=== PATIENT | female | born 1955 | race Caucasian/White ===

== ENCOUNTER → 2017-02-26 | Day surgery (SDC) | payer BC ==
[~2017-02-26] MED LIST: Bupivacaine 0.25% 30 ML SDV ONE; Lactated Ringers 1,000 ML IV SCH; Lidocaine 1% 30 ML SDV ONE; Lidocaine 1%/Sod Bicarbonate in NS 8.4% 1 ML Syringe PRN; Sodium Chloride 0.9% 10 ML Syringe FLUSH PRN; ceFAZolin 1 GM Vial ONE; ePHEDrine 50 MG/ML SDV ONE
--- NOTE | 2017-03-01 13:59 | PCM.OPNOTE ---
- General Post-Op/Procedure Note Date of Surgery/Procedure: 02/26/17 Operative Procedure(s): right carpal tunnel release Pre Op Diagnosis: right median nerve compression neuropathy Post-Op Diagnosis: Same Anesthesia Technique: Local Primary Surgeon: Medardo Moe Resaw Machine Operator: Kirsten Roche in mLs: 5 Complications: None Condition: Good
--- NOTE | 2017-03-01 14:24 | OR ---
DATE OF OPERATION: 02/26/2017 SURGEON: Medardo Moe MD OPERATION PERFORMED: Right carpal tunnel release. PREOPERATIVE DIAGNOSIS: Right median nerve compression neuropathy. POSTOPERATIVE DIAGNOSIS: Right median nerve compression neuropathy. ANESTHESIA: Local only. HIGH SCHOOL ASSISTANT FOOTBALL COACH: Kirsten Roche PA-C. ESTIMATED BLOOD LOSS: Less than 5 mL. COMPLICATIONS: None. CONDITION: Stable. DESCRIPTION OF PROCEDURE: The patient was identified in the preop holding area. Proper site was marked and identified by the surgeon. After the patient was taken back, the right upper extremity was sterilely prepped and draped in the usual sterile fashion. OR-wide time-out was performed. The patient received 2 grams of IV Ancef. At this time, right upper extremity was exsanguinated with the use of an Esmarch and it was used as a tourniquet on the forearm. With 1% lidocaine without epinephrine and 0.25% Marcaine without epinephrine, the palmar cutaneous branch of the median nerve was anesthetized proximally and then incisional site using Rehman cardinal line and ulnar border of the fourth digit. Once this had set up, incision was made. Blunt dissection was taken down to the palmar cutaneous fascia. Palmar cutaneous fascia was incised with a [place] blade. Transverse carpal ligament was identified. A small rent was made in the transverse carpal ligament and a [place] elevator was placed under this. [place] blade was used for release all the way distally, stopping just short of the palmar arch. At this time, attention was turned proximally. Tenotomy scissors was used for release of the superficial forearm fascia as well as transverse carpal ligament proximally, keeping the tips ulnar to protect the palmar cutaneous branch of the median nerve. At this time, there was found to be adequate release both proximally and distally. The patient had adequate saline irrigated through the wound. 4-0 nylon simple sutures were used, and the patient had a sterile soft dressing applied. MMODAL /[id number]
== END | disposition home or self-care (01) ==
LOC: JD.SDS 06:16
PROVIDERS: ATTEND Orthopaedic Surgery
DX: G56.01 Carpal tunnel syndrome, right upper limb (principal); I10 Essential (primary) hypertension; J45.30 Mild persistent asthma, uncomplicated; Z91.09 Other allergy status, other than to drugs and biological substances; Z79.899 Other long term (current) drug therapy; Z98.890 Other specified postprocedural states; Z98.51 Tubal ligation status; F17.210 Nicotine dependence, cigarettes, uncomplicated
CPT/HCPCS: 64721; 87641; J0690; J3490; J7120

== ENCOUNTER 2017-03-22 06:25 | Day surgery (SDC) | payer BC ==
[~2017-03-22 06:25] MED LIST changes: -Bupivacaine 0.25% 30 ML SDV ONE; -Lidocaine 1% 30 ML SDV ONE; +Lidocaine 1%/Sod Bicarbonate in NS 8.4% 1 ML Syringe IV PRN; -Lidocaine 1%/Sod Bicarbonate in NS 8.4% 1 ML Syringe PRN; -ceFAZolin 1 GM Vial ONE; -ePHEDrine 50 MG/ML SDV ONE
[2017-03-22] MEDS ORDERED: Bupivacaine 0.25% 30 ML SDV ONE (07:00)
[2017-03-22] MEDS ORDERED: ceFAZolin 1 GM Vial ONE (07:00)
[2017-03-22] MEDS ORDERED: Lidocaine 1% 30 ML SDV ONE (07:00)
--- NOTE | 2017-03-22 14:28 | PCM.OPNOTE ---
- General Post-Op/Procedure Note Date of Surgery/Procedure: 03/22/17 Operative Procedure(s): left carpal tunnel release Pre Op Diagnosis: left median nerve compression neuropathy Post-Op Diagnosis: Same Anesthesia Technique: Local Primary Surgeon: Medardo Moe Management Specialist: Kirsten Roche in mLs: 5 Complications: None Condition: Good Free Text/Narrative:: Intake & Output 03/21/17 03/22/17 03/22/17 22:59 06:59 14:59 Intake Total 460 Balance 460
--- NOTE | 2017-03-22 14:52 | OR ---
DATE OF OPERATION: 03/22/2017 SURGEON: Medardo Moe MD OPERATION PERFORMED: Left hand carpal tunnel release. PREOPERATIVE DIAGNOSIS: Left median nerve compression neuropathy. POSTOPERATIVE DIAGNOSIS: Left median nerve compression neuropathy. ANESTHESIA: Local only. ANESTHESIA PROVIDER: None. CABLE COVERER: Kirsten Roche PA-C. ESTIMATED BLOOD LOSS: Less than 5 mL. COMPLICATIONS: None. CONDITION: Stable. DESCRIPTION OF PROCEDURE: The patient was identified in the preop holding area. Proper site was marked and identified by the surgeon. The patient was taken back to the operating theater where after adequate anesthesia, the patient's left upper extremity was then sterilely prepped and draped in the usual sterile fashion. OR time-out was performed. The patient received 2 g of IV Ancef. At this time, the left upper extremity was marked after the incision site. A 1% lidocaine without epinephrine and 0.25% Marcaine without epinephrine were then used to anesthetize incisional site as well as the palmar cutaneous branch of the median nerve. Esmarch was then used on the forearm as a tourniquet. Incision was then made. Blunt dissection was taken down of the palmar cutaneous fascia. Palmar cutaneous fascia was then incised and taken down transverse carpal ligament. A small rent was made in the transverse carpal ligament. A [place] elevator was then placed underneath the transverse carpal ligament and it was released all the way distally with the use of a [place] blade. At this time, it was found to be adequate release distally. At this time, attention was turned proximally using a tenotomy scissors with keeping the tips ulnar to protect the palmar cutaneous branch of the median nerve. The forearm fascia as well as transverse carpal ligament was then released proximally. At this time, it was found to be adequate release both proximally and distally. Adequate saline was irrigated through the wound. It was closed with nylon sutures and a sterile soft dressing was applied. The patient tolerated the procedure well and was sent to PACU in stable condition. MMODAL /[id number]
== END 2017-03-22 08:25 | disposition home or self-care (01) ==
LOC: JD.SDS 06:25
PROVIDERS: ATTEND Orthopaedic Surgery
DX: G56.02 Carpal tunnel syndrome, left upper limb (principal); F17.200 Nicotine dependence, unspecified, uncomplicated; J45.30 Mild persistent asthma, uncomplicated; I10 Essential (primary) hypertension; Z98.51 Tubal ligation status; Z79.899 Other long term (current) drug therapy; Z91.048 Other nonmedicinal substance allergy status
CPT/HCPCS: 64721; 87641; J0690; J3490; J7120

== ENCOUNTER 2017-08-09 09:14 | Day surgery (SDC) | payer BC ==
[~2017-08-09 09:14] MED LIST changes: +Lidocaine 1%/Sod Bicarbonate in NS 8.4% 1 ML Syringe IDERM PRN; -Lidocaine 1%/Sod Bicarbonate in NS 8.4% 1 ML Syringe IV PRN
[2017-08-09] MEDS ORDERED: Bupivacaine 0.25% 30 ML SDV ONE (10:53)
[2017-08-09] MEDS ORDERED: Lidocaine 1% 30 ML SDV ONE (10:53)
--- NOTE | 2017-08-10 10:09 | PCM.OPNOTE ---
- General Post-Op/Procedure Note Date of Surgery/Procedure: 08/09/17 Operative Procedure(s): right thumb a1 yuval release Pre Op Diagnosis: right thumb stenosing tenosynovitis Post-Op Diagnosis: Same Anesthesia Technique: Local Primary Surgeon: Medardo Moe Hammer Runner: Kirsten Roche in mLs: 5 Complications: None Condition: Good
--- NOTE | 2017-08-10 10:40 | OR ---
DATE OF OPERATION: 08/09/2017 SURGEON: Medardo Moe MD OPERATION PERFORMED: Right thumb A1 yuval release. PREOPERATIVE DIAGNOSIS: Right thumb stenosing tenosynovitis. POSTOPERATIVE DIAGNOSIS: Right thumb stenosing tenosynovitis. ANESTHESIA: Local only. ANESTHESIA PROVIDER: None. CLERK STENOGRAPHER: Kirsten Roche PA-C ESTIMATED BLOOD LOSS: Less than 5 mL. COMPLICATIONS: None. CONDITION: Stable. DESCRIPTION OF PROCEDURE: The patient was identified in the preop holding area. Proper site was marked and identified by the surgeon. The patient was taken back to the operative theater where the patient's right upper extremity was then sterilely prepped and draped in the usual sterile fashion. OR time-out was performed. At this time, 1% lidocaine without epinephrine and 0.25% Marcaine without epinephrine were used to anesthetize the incisional site. An Esmarch was then used as a tourniquet on the forearm. A transverse incision was made in the thumb crease. Blunt dissection was taken down to the A1 yuval. The A1 yuval was identified. [place] retractors were placed on the radial and ulnar aspects to protect the neurovascular bundle. [place] blade was then used to make a rent in the A1 yuval, and tenotomy scissors were used for releasing both proximally and distally of the A1 yuval. It was found to be adequately released. The patient was noted to have significant adhesions, and these were broken up between the tendons at this time. The patient was able to make a full fist. There was no triggering noted. At this time, adequate saline was irrigated through the wound. 4-0 nylon simple suture was used for closure of the skin. The patient had a sterile soft dressing applied and was sent to the PACU in stable condition. MMODAL /[id number]
== END 2017-08-09 12:18 | disposition home or self-care (01) ==
LOC: JD.SDS 09:14
PROVIDERS: ATTEND Orthopaedic Surgery
DX: M65.311 Trigger thumb, right thumb (principal); M65.841 Other synovitis and tenosynovitis, right hand; F17.210 Nicotine dependence, cigarettes, uncomplicated; J45.30 Mild persistent asthma, uncomplicated; I10 Essential (primary) hypertension; Z91.048 Other nonmedicinal substance allergy status; Z79.899 Other long term (current) drug therapy
CPT/HCPCS: 26055; 87641; J3490